=== PATIENT | male | born 1970 | race African-American/Black ===

== ENCOUNTER 2019-01-09 14:35 | Emergency (ER) | payer BC ==
[~2019-01-09] VITALS: Ht 167.6 cm; Wt 99.8 kg
[2019-01-09 14:46] VITALS: BP 144/81
[2019-01-09] MEDS ORDERED: LIDOCAINE WITH 8.4% SOD BICARB 3 ML DISP.SYRIN. ONE (14:58)
[2019-01-09] MEDS ORDERED: DIPHTH,PERTUSS(ACELL),TET TOX 0.5 ML DISP.SYRIN. VAX IM ONE ×2 (14:58→15:00)
[2019-01-09] MEDS ORDERED: LIDOCAINE WITH 8.4% SOD BICARB 3 ML DISP.SYRIN. INJ ONE (15:00)
--- NOTE | 2019-01-09 16:23 | PHYS DOC ---
Past Medical History Past Medical History: No Pertinent History Past Surgical History: Other Additional Past Surgical Histo: HERNIA REPAIR, LEFT BICEP REPAIR Alcohol Use: Occasionally Drug Use: None Adult General Chief Complaint Chief Complaint: LACERATION/AVULSION HPI HPI Patient is a 48 year old medical presents with left thumb laceration. Patient accidentally cut himself with a knife cutting vegetables, he is right-handed. Review of Systems Review of Systems Constitutional: Denies fever or chills [] Musculoskeletal: Denies back pain or joint pain [] Integument: Left thumb laceration Neurologic: Denies headache, focal weakness or sensory changes [] All other systems were reviewed and found to be within normal limits, except as documented in this note. Current Medications Current Medications Current Medications Medications (Trade) Dose Ordered Sig/Yareli Start Time Stop Time Status Last Admin Dose Admin Diphtheria/ Tetanus/Acell Pertussis (Boostrix) 0.5 ml STK-MED ONCE 01/09/19 14:58 01/09/19 14:59 DC Lidocaine/Sodium Bicarbonate (Buffered Lidocaine 1%) 3 ml STK-MED ONCE 01/09/19 14:58 01/09/19 14:59 DC Allergies Allergies Allergies Coded Allergies Type Severity Reaction Last Updated Verified Penicillins Allergy Unknown 01/09/19 Yes Physical Exam Physical Exam Constitutional: Well developed, well nourished, no acute distress, non-toxic appearance. [] Skin: Tip of the left thumb without skin avulsion type laceration approximately 2 cm, bleeding is not well controlled. Pressure is being used to control the bleeding. There is no obvious tendon involvement. Full range of motion to the finger. Adequate radius sensation to the finger. +2 left radial pulse. Cap refill less than 2 seconds the left thumb Back: No tenderness, no CVA tenderness. [] Extremities: No tenderness, no cyanosis, no clubbing, ROM intact, no edema. [] Neurologic: Alert and oriented X 3, normal motor function, normal sensory function, no focal deficits noted. [] Psychologic: Affect normal, judgement normal, mood normal. [] Current Patient Data Vital Signs Vital Signs Date Time Temp Pulse Resp B/P (MAP) Pulse Ox O2 Delivery O2 Flow Rate FiO2 01/09/19 14:46 99.1 80 16 144/81 (102) 98 Room Air 99.1 EKG EKG [] Radiology/Procedures Radiology/Procedures Laceration/Wound Repair Wound Location: Left thumb laceration Wound's Depth, Shape: C Wound Length (cm): Approximately 2 cm Wound Explored: clean Irrigated w/ Saline (ccs): 300 Betadine Prep?: Anesthesia: 1% BUFFERED lidocaine Volume Anesthetic (ccs): Approximately 1 Wound Repaired With: dissolvable gut mL Suture Size/Type: 5.0/interrupted sutures Number of Sutures: 4 Progress : Wound was covered with nonstick dressing Course & Med Decision Making Course & Med Decision Making Pertinent Labs and Imaging studies reviewed. (See chart for details) This is a 48-year-old male patient presented to the ED today with left thumb laceration that was closed by me as noted in procedures. Tetanus was updated. Wound care instructions and return precautions provided. Dragon Disclaimer Dragon Disclaimer This electronic medical record was generated, in whole or in part, using a voice recognition dictation system. Departure Departure Impression: Primary Impression: Finger laceration Disposition: 01 HOME, SELF-CARE Condition: STABLE Referrals: BALAJI DOWD MD (PCP) follow up with your doctor as needed Patient Instructions: Fingertip Laceration Additional Instructions: You have left finger tip laceration that was closed with dissolvable stitches, keep the area clean and dry. You can shower. You can wash your hands but do not soak the left hand. Apply Neosporin to the area twice a day. Monitor the area for any signs of infection including increased redness, warmth, yellow drainage from the area and return to the ED or see your doctor if they occur Problem Qualifiers Primary Impression: Finger laceration Encounter type: initial encounter Finger: thumb Damage to nail status: without damage Foreign body presence: without foreign body Laterality: left Qualified Codes: S61.012A - Laceration without foreign body of left thumb without damage to nail, initial encounter BHAVANI MARSH APRN January 09, 2019 16:23
== END 2019-01-09 16:32 | disposition home or self-care (01) ==
LOC: ER 14:35
DX: S61.012A Laceration without foreign body of left thumb without damage to nail, initial encounter (principal); Z88.0 Allergy status to penicillin; W26.0XXA Contact with knife, initial encounter; Y93.89 Activity, other specified; Y92.89 Other specified places as the place of occurrence of the external cause; Y99.8 Other external cause status
CPT/HCPCS: 12001; 90471; 90715; 99283